=== PATIENT | female | born 2000 | race Caucasian/White ===

== ENCOUNTER 2021-02-25 16:34 | Emergency (ER) | payer OTHER ==
[~2021-02-25] VITALS: Ht 165.1 cm; Wt 107.0 kg
[2021-02-25 18:20] LABS: HEMOGLOBIN 13.5 g/dl (12.0-16.0); IMMATURE GRANULOCYTES 0.2 % (0.0-5.0); MEAN CELL VOLUME 87.6 fL CALC (80.0-100.0); MEAN CORPUSCULAR HGB 27.5 pG CALC (26.0-32.0); MEAN CORPUSCULAR HGB CONC 31.4 g/dL CAL (32.0-36.0); NEUT# 6.26 thou/uL (2.00-7.15); RED BLOOD COUNT 4.91 mill/uL (4.20-5.60); RED CELL DISTRI WIDTH 13.5 % (11.5-15.5)
[2021-02-25 18:37] LABS: ALBUMIN 4.5 g/dL (3.2-5.0); ALKALINE PHOSPHATASE 95 u/l (38-126); AMYLASE 64 u/l (30-110); ANION GAP 14 (6-22 (CALC)); BILIRUBIN, TOTAL 0.1 mg/dL (0.0-1.4); BUN 12 mg/dL (8-21); BUN/CREATININE RATIO 18 (12-20 (CALC)); CARBON DIOXIDE 28 mmol/l (22-30); CHLORIDE 105 mmol/l (95-108); CREATININE 0.7 mg/dL (0.5-1.0); GFR > 60 ML/MIN (>=60 (CALC)); GFR FOR AFR.AMER. > 60 ML/MIN (>=60 (CALC)); LIPASE 90 u/l (23-300); POTASSIUM 3.6 mmol/l (3.5-5.1); SGOT/AST 33 u/l (14-36); SODIUM 143 mmol/l (137-146); TOTAL PROTEIN 8.1 g/dL (6.3-8.2)
[2021-02-25 21:15] VITALS: BP 126/70
== END 2021-02-25 21:25 | disposition home or self-care (01) | DRG 392 ==
LOC: ED 16:34
DX: A08.11 Acute gastroenteropathy due to Norwalk agent (principal); F41.9 Anxiety disorder, unspecified; F31.9 Bipolar disorder, unspecified; F17.290 Nicotine dependence, other tobacco product, uncomplicated